=== PATIENT | female | born 1990 | race Caucasian/White ===

== ENCOUNTER 2016-12-23 08:15 | Emergency (ER) | payer MEDICAID ==
[~2016-12-23] VITALS: Ht 147.3 cm; Wt 72.0 kg
[2016-12-23 08:56] VITALS: BP 116/80
== END 2016-12-23 09:22 | disposition home or self-care (01) ==
LOC: ER 08:32
DX: H01.004 Unspecified blepharitis left upper eyelid (principal)
CPT/HCPCS: 99283

== ENCOUNTER 2018-01-25 10:46 | Emergency (ER) | payer MEDICAID ==
[~2018-01-25] VITALS: Ht 157.5 cm; Wt 62.0 kg
[2018-01-25] MEDS ORDERED: ONDANSETRON HCL 4MG/2ML VIAL IV STA (11:16)
[2018-01-25] MEDS ORDERED: SODIUM CHLORIDE 0.9% 1,000 ML IV ONE (11:16)
[2018-01-25] MEDS ORDERED: MORPHINE SULFATE 4 MG/ML CPJ (NOT FOR IM USE) IV STA (11:16)
[2018-01-25 11:35] LABS: BASOPHILS % 0.2 % (0.0-2.0); EOSINOPHILS % 1.8 % (0.0-5.0); HEMATOCRIT. 38.6 % (36.0-48.0); HEMOGLOBIN. 13.1 g/dL (12.0-16.0); LYMPHOCYTES % 19.6 % (20.0-50.0); MEAN CORPUSCULAR HEMOGLOBIN 29.2 pg (28.0-32.0); MEAN CORPUSCULAR VOLUME 85.8 fL (81.0-99.0); MEAN PLATELET VOLUME 7.8 fl (7.4-10.4); MONOCYTES % 5.1 % (2.0-8.0); NEUTROPHILS % 73.3 % (40.0-76.0); PLATELET 250 x1000/uL (130-400); RED CELL DISTRIBUTION WIDTH 13.2 % (11.6-14.6)
[2018-01-25 11:42] LABS: PROTHROMBIN TIME 10.4 sec (9.1-11.1)
[2018-01-25 11:49] LABS: CHLORIDE 111 mEq/L (98-107)
[2018-01-25 11:59] LABS: HCG SCREEN NEGATIVE
[2018-01-25 13:15] LABS: CLARITY URINE CLOUDY (CLEAR); COLOR URINE YELLOW (YELLOW); KETONES URINE NEGATIVE (NEGATIVE); LEUKOCYTE ESTERASE URINE 2+ (NEGATIVE); NITRITE URINE NEGATIVE (NEGATIVE); OCCULT BLOOD URINE NEGATIVE (NEGATIVE); PROTEIN URINE NEGATIVE (NEGATIVE); SPECIFIC GRAVITY URINE 1.026 (1.005-1.030); UROBILINOGEN URINE 0.2 E.U./dL (0.2-1.0)
[2018-01-25] MEDS ORDERED: KETOROLAC 30MG/ML VIAL IV ONE (14:45)
[2018-01-25] MEDS ORDERED: HYDROCODONE/ACETAMINOPHEN 5/325MG TABLET PO ONE (15:30)
[2018-01-25 17:10] VITALS: BP 110/68
== END 2018-01-25 17:13 | disposition home or self-care (01) ==
LOC: ER 10:50
DX: K52.9 Noninfective gastroenteritis and colitis, unspecified (principal); N39.0 Urinary tract infection, site not specified; N83.202 Unspecified ovarian cyst, left side
CPT/HCPCS: 36415; 74176; 80053; 81003; 81025; 83690; 84703; 85025; 85610; 96361; 96374; 96375; 99285; J1885; J2270; J2405; J7030